=== PATIENT | male | born 1950 | race Caucasian/White ===

== ENCOUNTER → 2024-11-08 08:14 | Outpatient (CLI) | payer OTHER, SELFPAY ==
--- NOTE | 2024-11-08 08:15 | DI.US.S_ITS ---
PROCEDURE: US ABD AORTA ANEURYSM SCREEN INDICATIONS: AAA SCREENING TECHNIQUE: Real-time scanning was performed of the aorta and proximal common iliac arteries, with image documentation. COMPARISON: None. FINDINGS: Aorta: Abdominal aorta is normal in caliber throughout its length. Proximal aorta 2.2 cm diameter. Mid aorta 1.9 cm Distal aorta 1.8 cm Iliacs: Proximal common iliac arteries are normal in caliber. Right common iliac artery 1.1 cm Left common iliac artery 1.1 cm IMPRESSION: No ultrasound evidence of abdominal aortic aneurysm. Dictated by: Jean Paul Renteria M.D. on 11/08/2024 at 9:24 Approved by: Jean Paul Renteria M.D. on 11/08/2024 at 9:29
== END ==
PROVIDERS: Family Provider Family Medicine; PCP Family Medicine; Referring Provider Family Medicine; Visit Provider Family Medicine
DX: Z13.6 Encounter for screening for cardiovascular disorders (principal); Z87.891 Personal history of nicotine dependence
CPT/HCPCS: 76706